=== PATIENT | female | born 1960 | race African-American/Black ===

== ENCOUNTER 2016-07-01 12:30 | Emergency (ER) | payer SELFPAY ==
[~2016-07-01] VITALS: Ht 162.6 cm; Wt 76.2 kg
[~2016-07-01 12:30] MED LIST: CLINDAMYCIN HC300 MG ORAL; IBUPROFEN600 MG ORAL
[2016-07-01] MEDS ORDERED: Bacitracin Oint UD TOPIC ONE (13:15)
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
[2016-07-01] MEDS ORDERED: NEXAFED30 MG ORAL (13:17)
[2016-07-01] MEDS ORDERED: HM DOUBLE ANT28.4 G1 TP (13:17)
[2016-07-01] MEDS ORDERED: LIDOCAINE VISCO20 ML PO (13:17)
[2016-07-01 13:27] VITALS: BP 160/83
== END 2016-07-01 13:30 | disposition home or self-care (01) ==
LOC: EMR 13:29
DX: Z48.02 Encounter for removal of sutures (principal); J02.9 Acute pharyngitis, unspecified; I10 Essential (primary) hypertension; Z88.2 Allergy status to sulfonamides
CPT/HCPCS: 99284